=== PATIENT | male | born 1945 | race Caucasian/White ===

== ENCOUNTER 2021-07-28 09:20 | Outpatient (CLI) | payer MEDICARE, OTHER ==
[2021-07-28] MEDS ORDERED: LIDOCAINE SOLN 4% 50 ML BOTTLE ONE (09:46)
[2021-07-28] MEDS ORDERED: COLLAGENASE 5 GM TUBE UD TP ONE (10:04)
== END 2021-07-28 23:59 | disposition home or self-care (01) ==
LOC: WOU 09:20
PROVIDERS: ATTEND Specialist
DX: S80.871D Other superficial bite, right lower leg, subsequent encounter (principal); W54.0XXD Bitten by dog, subsequent encounter; I83.90 Asymptomatic varicose veins of unspecified lower extremity; Z79.82 Long term (current) use of aspirin
CPT/HCPCS: 87070; 87075; G0463; 87186-TC

== ENCOUNTER 2021-08-18 09:20 | Outpatient (CLI) | payer MEDICARE, OTHER ==
[2021-08-18] MEDS ORDERED: LIDOCAINE SOLN 4% 50 ML BOTTLE ONE (09:32)
[2021-08-18] MEDS ORDERED: COLLAGENASE 5 GM TUBE UD TP ONE (10:13)
== END 2021-08-18 23:59 | disposition home or self-care (01) ==
LOC: WOU 09:20
PROVIDERS: ATTEND Specialist
DX: S81.851A Open bite, right lower leg, initial encounter (principal); W54.0XXA Bitten by dog, initial encounter; Y92.89 Other specified places as the place of occurrence of the external cause
CPT/HCPCS: 11042; 87070-TC; 87075-TC; 87186-TC

== ENCOUNTER 2021-09-01 09:25 | Outpatient (CLI) | payer MEDICARE, OTHER ==
[2021-09-01] MEDS ORDERED: LIDOCAINE SOLN 4% 50 ML BOTTLE ONE (09:38)
== END 2021-09-01 23:59 | disposition home or self-care (01) ==
LOC: WOU 09:25
PROVIDERS: ATTEND Specialist
DX: S80.871D Other superficial bite, right lower leg, subsequent encounter (principal); W54.0XXD Bitten by dog, subsequent encounter; I83.90 Asymptomatic varicose veins of unspecified lower extremity; Z87.891 Personal history of nicotine dependence
CPT/HCPCS: G0463

== ENCOUNTER 2021-09-08 09:20 | Outpatient (CLI) | payer MEDICARE, OTHER ==
[2021-09-08] MEDS ORDERED: LIDOCAINE SOLN 4% 50 ML BOTTLE ONE (09:35)
== END 2021-09-08 23:59 | disposition home or self-care (01) ==
LOC: WOU 09:20
PROVIDERS: ATTEND Specialist
DX: S81.851A Open bite, right lower leg, initial encounter (principal); W54.0XXA Bitten by dog, initial encounter; Y92.89 Other specified places as the place of occurrence of the external cause; Z79.82 Long term (current) use of aspirin
CPT/HCPCS: 11042

== ENCOUNTER 2021-09-15 08:38 | Outpatient (CLI) | payer MEDICARE, OTHER | END 2021-09-15 23:59 | disposition home or self-care (01) | LOC: VASLAB 08:38 | PROVIDERS: ATTEND Internal Medicine | DX: I87.2 Venous insufficiency (chronic) (peripheral) (principal); Z91.19 Patient's noncompliance with other medical treatment and regimen; S81.851D Open bite, right lower leg, subsequent encounter; W54.0XXD Bitten by dog, subsequent encounter | CPT/HCPCS: G0463 ==

== ENCOUNTER 2021-09-22 09:23 | Outpatient (CLI) | payer MEDICARE, OTHER | END 2021-09-22 23:59 | disposition home or self-care (01) | LOC: WOU 09:23 | PROVIDERS: ATTEND Specialist | DX: S81.851D Open bite, right lower leg, subsequent encounter (principal); W54.0XXD Bitten by dog, subsequent encounter; Z79.82 Long term (current) use of aspirin | CPT/HCPCS: G0463 ==

== ENCOUNTER 2021-10-06 09:20 | Outpatient (CLI) | payer MEDICARE, OTHER | END 2021-10-06 23:59 | disposition home or self-care (01) | LOC: WOU 09:20 | PROVIDERS: ATTEND Specialist | DX: S81.851A Open bite, right lower leg, initial encounter (principal); W54.0XXA Bitten by dog, initial encounter; Y93.89 Activity, other specified; Y92.89 Other specified places as the place of occurrence of the external cause; Z87.891 Personal history of nicotine dependence; Z79.82 Long term (current) use of aspirin | CPT/HCPCS: 11042 ==

== ENCOUNTER 2021-10-13 09:20 | Outpatient (CLI) | payer MEDICARE, OTHER | END 2021-10-13 23:59 | disposition home or self-care (01) | LOC: WOU 09:20 | PROVIDERS: ATTEND Specialist | DX: S81.851D Open bite, right lower leg, subsequent encounter (principal); W54.0XXD Bitten by dog, subsequent encounter; I83.90 Asymptomatic varicose veins of unspecified lower extremity; Z79.82 Long term (current) use of aspirin | CPT/HCPCS: 87070; 87075; 87077; 87186; G0463 ==

== ENCOUNTER 2021-10-20 09:35 | Outpatient (CLI) | payer MEDICARE, OTHER | END 2021-10-20 23:59 | disposition home or self-care (01) | LOC: WOU 09:35 | PROVIDERS: ATTEND Specialist | DX: S81.851D Open bite, right lower leg, subsequent encounter (principal); W54.0XXD Bitten by dog, subsequent encounter; B95.8 Unspecified staphylococcus as the cause of diseases classified elsewhere; Z79.82 Long term (current) use of aspirin | CPT/HCPCS: A6209; G0463 ==

== ENCOUNTER 2021-10-27 09:24 | Outpatient (CLI) | payer MEDICARE, OTHER ==
[2021-10-27] MEDS ORDERED: LIDOCAINE SOLN 4% 50 ML BOTTLE ONE (09:54)
[2021-10-27] MEDS ORDERED: HYDROCORTISONE 1% CREAM 28.35 GM TUBE TP ONE (10:10)
== END 2021-10-27 23:59 | disposition home or self-care (01) ==
LOC: WOU 09:24
PROVIDERS: ATTEND Specialist
DX: S81.851D Open bite, right lower leg, subsequent encounter (principal); W54.0XXD Bitten by dog, subsequent encounter; Z79.82 Long term (current) use of aspirin
CPT/HCPCS: G0463

== ENCOUNTER 2021-11-10 09:20 | Outpatient (CLI) | payer MEDICARE, OTHER | END 2021-11-10 23:59 | disposition home or self-care (01) | LOC: WOU 09:20 | PROVIDERS: ATTEND Specialist | DX: S81.851A Open bite, right lower leg, initial encounter (principal); W54.0XXA Bitten by dog, initial encounter; Y92.89 Other specified places as the place of occurrence of the external cause; Z87.891 Personal history of nicotine dependence; Z79.82 Long term (current) use of aspirin | CPT/HCPCS: 11042; 87070; 87075; 87077; A6209 ==

== ENCOUNTER 2021-11-17 09:28 | Outpatient (CLI) | payer MEDICARE, OTHER ==
[2021-11-17] MEDS ORDERED: CADEXOMER IODINE UD 5 GM TUBE ONE ×2 (09:51→10:01)
== END 2021-11-17 23:59 | disposition home or self-care (01) ==
LOC: WOU 09:28
PROVIDERS: ATTEND Specialist
DX: S81.851D Open bite, right lower leg, subsequent encounter (principal); W54.0XXD Bitten by dog, subsequent encounter; B95.8 Unspecified staphylococcus as the cause of diseases classified elsewhere
CPT/HCPCS: G0463

== ENCOUNTER 2021-11-24 09:17 | Outpatient (CLI) | payer MEDICARE, OTHER ==
[2021-11-24] MEDS ORDERED: CADEXOMER IODINE UD 5 GM TUBE ONE (09:51)
== END 2021-11-24 23:59 | disposition home or self-care (01) ==
LOC: WOU 09:17
PROVIDERS: ATTEND Specialist
DX: S81.851A Open bite, right lower leg, initial encounter (principal); W54.0XXA Bitten by dog, initial encounter; Y92.89 Other specified places as the place of occurrence of the external cause; Z79.82 Long term (current) use of aspirin
CPT/HCPCS: 17250

== ENCOUNTER 2021-12-01 09:20 | Outpatient (CLI) | payer MEDICARE, OTHER ==
[2021-12-01] MEDS ORDERED: CADEXOMER IODINE UD 5 GM TUBE ONE (09:46)
== END 2021-12-01 23:59 | disposition home or self-care (01) ==
LOC: WOU 09:20
PROVIDERS: ATTEND Specialist
DX: S81.851A Open bite, right lower leg, initial encounter (principal); W54.0XXA Bitten by dog, initial encounter; Y92.89 Other specified places as the place of occurrence of the external cause; Z79.82 Long term (current) use of aspirin
CPT/HCPCS: 11042

== ENCOUNTER 2021-12-08 09:20 | Outpatient (CLI) | payer MEDICARE, OTHER ==
[2021-12-08] MEDS ORDERED: LIDOCAINE SOLN 4% 50 ML BOTTLE ONE (09:26)
[2021-12-08] MEDS ORDERED: CADEXOMER IODINE UD 5 GM TUBE ONE (09:45)
== END 2021-12-08 23:59 | disposition home or self-care (01) ==
LOC: WOU 09:20
PROVIDERS: ATTEND Specialist
DX: S81.851A Open bite, right lower leg, initial encounter (principal); W54.0XXA Bitten by dog, initial encounter; Y92.89 Other specified places as the place of occurrence of the external cause; Z79.82 Long term (current) use of aspirin
CPT/HCPCS: 11042

== ENCOUNTER 2021-12-22 09:23 | Outpatient (CLI) | payer MEDICARE, OTHER ==
[2021-12-22] MEDS ORDERED: CADEXOMER IODINE UD 5 GM TUBE ONE (09:56)
[2021-12-22] MEDS ORDERED: LIDOCAINE SOLN 4% 50 ML BOTTLE ONE (10:01)
== END 2021-12-22 23:59 | disposition home or self-care (01) ==
LOC: WOU 09:23
PROVIDERS: ATTEND Specialist
DX: S81.851A Open bite, right lower leg, initial encounter (principal); W54.0XXA Bitten by dog, initial encounter; Y92.89 Other specified places as the place of occurrence of the external cause; I83.90 Asymptomatic varicose veins of unspecified lower extremity; Z79.82 Long term (current) use of aspirin
CPT/HCPCS: 11042

== ENCOUNTER 2022-01-05 09:20 | Outpatient (CLI) | payer MEDICARE, OTHER | END 2022-01-05 23:59 | disposition home or self-care (01) | LOC: WOU 09:20 | PROVIDERS: ATTEND Specialist | DX: S81.851D Open bite, right lower leg, subsequent encounter (principal); W54.0XXD Bitten by dog, subsequent encounter; Z79.82 Long term (current) use of aspirin | CPT/HCPCS: G0463 ==